=== PATIENT | male | born 1950 | race Caucasian/White ===

== ENCOUNTER 2020-07-06 05:42 | Day surgery (SDC) | payer MEDICARE, MEDICAID ==
[2020-07-06] VITALS (8 sets, daily range): BP systolic 122–138; BP diastolic 67–80
[~2020-07-06] VITALS: Ht 167.6 cm; Wt 61.4 kg
[2020-07-06] MEDS ORDERED: albumin 25% 100mL bottle x 1 IV PRN (06:00)
[2020-07-06] MEDS ORDERED: POTA10TA19 PO (06:05)
[2020-07-06] MEDS ORDERED: FURO-150 PO (06:05)
== END 2020-07-06 09:55 | disposition home or self-care (01) ==
LOC: SSTAY O 05:42
PROVIDERS: ATTEND Radiology Diagnostic Radiology
DX: R18.8 Other ascites (principal); N40.0 Benign prostatic hyperplasia without lower urinary tract symptoms; Z87.19 Personal history of other diseases of the digestive system; Z79.899 Other long term (current) drug therapy
CPT/HCPCS: 49083

== ENCOUNTER 2020-07-12 08:27 | Day surgery (SDC) | payer MEDICARE, MEDICAID ==
[~2020-07-12] VITALS: Ht 167.6 cm; Wt 63.3 kg
[~2020-07-12 08:27] MED LIST: FURO-150 PO; POTA10TA19 PO
[2020-07-12] MEDS ORDERED: albumin 25% 100mL bottle x 1 IV PRN (08:50)
[2020-07-12 08:54] VITALS: BP 144/83
[2020-07-12 09:40] VITALS: BP 153/85
[2020-07-12 09:55] VITALS: BP 144/89
[2020-07-12 10:10] VITALS: BP 141/80
[2020-07-12 10:30] VITALS: BP 141/79
[2020-07-12 10:45] VITALS: BP 148/76
== END 2020-07-12 11:10 | disposition home or self-care (01) ==
LOC: SSTAY O 08:27
PROVIDERS: ATTEND Radiology Diagnostic Radiology
DX: R18.8 Other ascites (principal); N40.0 Benign prostatic hyperplasia without lower urinary tract symptoms; Z79.899 Other long term (current) drug therapy; Z87.891 Personal history of nicotine dependence; Z98.49 Cataract extraction status, unspecified eye
CPT/HCPCS: 49083; P9047

== ENCOUNTER 2020-07-16 08:14 | Day surgery (SDC) | payer MEDICARE, MEDICAID ==
[~2020-07-16] VITALS: Ht 167.6 cm; Wt 60.9 kg
[2020-07-16 08:35] VITALS: BP 134/78
[2020-07-16] MEDS ORDERED: SPIR25TA5 PO (08:55)
[2020-07-16] MEDS ORDERED: MULT-381 PO (08:56)
[2020-07-16 09:37] LABS: BASOPHILS % (AUTO) 0.7 % (0-1); EOSINOPHILS # (AUTO) 0.1 X10'3 (0-0.9); EOSINOPHILS % (AUTO) 1.6 % (0-6); HEMATOCRIT 34.4 % (42.0-52.0); HEMOGLOBIN 11.7 g/dl (14.0-17.9); LYMPHOCYTES # (AUTO) 1.4 X10'3 (1.1-4.8); LYMPHOCYTES % (AUTO) 20.2 % (21-51); MEAN CORPUSCULAR HEMOGLOBIN 33.4 PG (27.0-31.0); MEAN CORPUSCULAR VOLUME 98.3 FL (78-98); MONOCYTES # (AUTO) 0.9 X10'3 (0-0.9); MONOCYTES % (AUTO) 13.9 % (2-12); NEUTROPHILS # (AUTO) 4.3 X10'3 (1.8-7.7); NEUTROPHILS % (AUTO) 63.6 % (42-75); PLATELET COUNT 107 X10'3 (140-440); RED CELL DISTRIBUTION WIDTH 17.9 % (11.5-14.5); WHITE BLOOD COUNT 6.8 X10'3 (4.5-11.0)
[2020-07-16 11:08] VITALS: BP 128/75
[2020-07-16 11:15] VITALS: BP 130/78
[2020-07-16 11:37] VITALS: BP 129/71
[2020-07-16] MEDS ORDERED: iohexol 300mg/ml 100ml inj. ONE (11:37)
[2020-07-16 11:43] LABS: ALBUMIN 1.7 G/DL (3.4-5.0); ANION GAP 7 (8-16); BLOOD UREA NITROGEN 25 MG/DL (7-18); BUN/CREATININE RATIO 30.9 (5.4-32.0); CHLORIDE 99 MMOL/L (99-107); CREATININE 0.81 MG/DL (0.60-1.10); GLUCOSE 115 MG/DL (70-104); POTASSIUM 3.8 MMOL/L (3.5-5.1); SODIUM 132 MMOL/L (135-145); TOTAL CARBON DIOXIDE 25.6 MMOL/L (24-32); eGFR > 90 ML/MIN
[2020-07-16 11:45] VITALS: BP 126/72
== END 2020-07-16 12:50 | disposition home or self-care (01) ==
LOC: SSTAY O 08:14
PROVIDERS: ATTEND Radiology Diagnostic Radiology
DX: K70.31 Alcoholic cirrhosis of liver with ascites (principal); K76.89 Other specified diseases of liver; K80.20 Calculus of gallbladder without cholecystitis without obstruction; R16.1 Splenomegaly, not elsewhere classified; N40.0 Benign prostatic hyperplasia without lower urinary tract symptoms; Z72.89 Other problems related to lifestyle; Z79.899 Other long term (current) drug therapy
CPT/HCPCS: 36415; 49083; 74177; 80048; 85025; 85610; Q9967

== ENCOUNTER 2020-07-26 06:31 | Day surgery (SDC) | payer MEDICARE, MEDICAID ==
[~2020-07-26] VITALS: Ht 167.6 cm; Wt 61.9 kg
[2020-07-26] VITALS (9 sets, daily range): BP systolic 111–136; BP diastolic 53–78
[~2020-07-26 06:31] MED LIST changes: +MULT-381 PO; -POTA10TA19 PO; +SPIR25TA5 PO
[2020-07-26] MEDS ORDERED: albumin (human) 25% 100 ML IV solution IV ONE (08:55)
== END 2020-07-26 10:27 | disposition home or self-care (01) ==
LOC: SSTAY O 06:31
PROVIDERS: ATTEND Radiology Diagnostic Radiology
DX: R18.8 Other ascites (principal); N40.0 Benign prostatic hyperplasia without lower urinary tract symptoms; Z72.89 Other problems related to lifestyle; K76.89 Other specified diseases of liver; Z79.899 Other long term (current) drug therapy
CPT/HCPCS: 49083; P9047

== ENCOUNTER 2020-08-07 06:52 | Day surgery (SDC) | payer MEDICARE, MEDICAID ==
[2020-08-07] VITALS (8 sets, daily range): BP systolic 125–147; BP diastolic 72–81
[~2020-08-07] VITALS: Ht 167.6 cm; Wt 61.2 kg
[2020-08-07] MEDS ORDERED: albumin 25% 100mL bottle x 1 IV PRN (07:10)
[2020-08-07] MEDS ORDERED: normal saline 1000ml 1,000 ML IV PRN (07:10)
== END 2020-08-07 09:45 | disposition home or self-care (01) ==
LOC: SSTAY O 06:52
PROVIDERS: ATTEND Radiology Diagnostic Radiology
DX: R18.8 Other ascites (principal); N40.0 Benign prostatic hyperplasia without lower urinary tract symptoms; Z87.19 Personal history of other diseases of the digestive system; Z79.899 Other long term (current) drug therapy
CPT/HCPCS: 49083; P9047

== ENCOUNTER 2020-08-20 06:23 | Day surgery (SDC) | payer MEDICARE, MEDICAID ==
[2020-08-20] VITALS (7 sets, daily range): BP systolic 116–138; BP diastolic 66–73
[~2020-08-20] VITALS: Ht 167.6 cm; Wt 59.6 kg
[2020-08-20] MEDS ORDERED: albumin (human) 25% 100ml IV 100 ML IV PRN (09:10)
== END 2020-08-20 10:10 | disposition home or self-care (01) ==
LOC: SSTAY O 06:23
PROVIDERS: ATTEND Radiology Vascular & Interventional Radiology
DX: R18.8 Other ascites (principal); R14.0 Abdominal distension (gaseous); N40.0 Benign prostatic hyperplasia without lower urinary tract symptoms; Z72.89 Other problems related to lifestyle; Z79.899 Other long term (current) drug therapy
CPT/HCPCS: 49083; P9047

== ENCOUNTER 2020-08-31 06:32 | Day surgery (SDC) | payer MEDICARE, MEDICAID ==
[~2020-08-31] VITALS: Ht 167.6 cm; Wt 58.4 kg
[2020-08-31] MEDS ORDERED: albumin 25% 100mL bottle x 1 IV PRN (07:00)
[2020-08-31] MEDS ORDERED: DIPH-423 PO (07:02)
[2020-08-31 07:05] VITALS: BP 153/82
[2020-08-31 08:30] VITALS: BP 119/81
[2020-08-31 08:37] VITALS: BP 140/78
[2020-08-31 08:52] VITALS: BP 128/75
[2020-08-31 08:59] VITALS: BP 138/76
== END 2020-08-31 09:25 | disposition home or self-care (01) ==
LOC: SSTAY O 06:32
PROVIDERS: ATTEND Radiology Diagnostic Radiology
DX: R18.8 Other ascites (principal); R14.0 Abdominal distension (gaseous); N40.0 Benign prostatic hyperplasia without lower urinary tract symptoms; Z72.89 Other problems related to lifestyle; Z79.899 Other long term (current) drug therapy
CPT/HCPCS: 49083

== ENCOUNTER 2020-09-11 22:33 | Inpatient (IN) | payer MEDICARE, MEDICAID ==
[~2020-09-11] VITALS: Ht 167.6 cm; Wt 63.1 kg
--- NOTE | 2020-09-11 18:21 | NUR ---
Received report from Mitzy WILLETT at [facility]. RN stated that [facility] left with the pt at 1800.
--- NOTE | 2020-09-11 22:00 | NUR ---
Pt arrived on the unit via [facility]. Pt was agitated at the time of arrival and demanding to "go home right now!" Pt pulled his corpack out and refused assessment and all treatment. Son was called and was able to calm the patient. Vital signs are stable and pt had no signs of medical distress, will continue to monitor.
[~2020-09-11 22:33] MED LIST changes: +DIPH-423 PO
[2020-09-11] MEDS ORDERED: HYDROmorphone inj. 0.5 MG/0.5 ML DISP.SYRIN IV PRN (22:55)
[2020-09-11] MEDS ORDERED: ondansetron/PF 4mg/2ml inj IV PRN (22:55)
[2020-09-11] MEDS ORDERED: diphenhydrAMINE 50 mg/ml inj IV PRN (23:00)
[2020-09-12] VITALS: BP 148/69
--- NOTE | 2020-09-12 06:35 | NUR ---
Problems reprioritized. Patient report given, questions answered & plan of care reviewed with Morales WILLETT.
[2020-09-12 08:02] VITALS: BP 115/64
== END 2020-09-12 12:50 | disposition hospice, home (50) | DRG 951 ==
LOC: SUR 3N 22:33
PROVIDERS: ADMIT Internal Medicine; ATTEND Family Medicine
DX: Z51.5 Encounter for palliative care (principal); C22.0 Liver cell carcinoma; R64 Cachexia; F10.20 Alcohol dependence, uncomplicated; K70.40 Alcoholic hepatic failure without coma; Z79.899 Other long term (current) drug therapy; Z68.22 Body mass index [BMI] 22.0-22.9, adult
CPT/HCPCS: G0378

== ENCOUNTER 2020-09-17 04:53 | Inpatient (IN) | payer MEDICARE, MEDICAID ==
[~2020-09-17] VITALS: Ht 170.2 cm; Wt 63.0 kg
[~2020-09-17 04:53] MED LIST changes: -MULT-381 PO; -SPIR25TA5 PO
[2020-09-17] MEDS ORDERED: normal saline 1000ML IV soln IVB ONE (05:05)
[2020-09-17 05:12] LABS: ABG BASE EXCESS -14.7 mmol/L (-2.0-2.0); ABG HCO3 12.9 mmol/L (22.0-26.0); ABG OXYGEN SATURATION 74.2 % (94-97); ABG PCO2 (T) 36.4 mmHg (35.0-48.0); ABG PO2 (T) 52.6 mmHg (75.0-100.0); ALLEN'S TEST POSITIVE; FCOHb 2.2 % (0.0-3.9); FMetHb 0.3 % (0.0-1.5); FO2Hb 72.3 % (94-97); TOTAL HEMOGLOBIN 9.2 G/dl (14.0-18.0)
[2020-09-17] MEDS ORDERED: ondansetron/PF 4mg/2ml inj IV ONE (05:15)
[2020-09-17] MEDS: morphine 4 MG/ML inj SYRINge IV PRN ×2 (05:32→06:08)
[2020-09-17 05:48] LABS: ALANINE AMINOTRANSFERASE 126 U/L (12-78); ALBUMIN 1.9 G/DL (3.4-5.0); ALKALINE PHOSPHATASE 219 IU/L (46-116); ANION GAP 22 (8-16); BLOOD UREA NITROGEN 74 MG/DL (7-18); CHLORIDE 96 MMOL/L (99-107); SODIUM 132 MMOL/L (135-145)
[2020-09-17 05:59] LABS: ASPARTATE AMINO TRANSFERASE 244 U/L (10-37)
[2020-09-17 06:02] LABS: ALBUMIN/GLOBULIN RATIO 0.5 (1.1-1.5)
[2020-09-17 06:03] LABS: BASOPHILS % (AUTO) 0.7 % (0-1); EOSINOPHILS # (AUTO) 0.1 X10'3 (0-0.9); EOSINOPHILS % (AUTO) 1.3 % (0-6); HEMATOCRIT 27.6 % (42.0-52.0); HEMOGLOBIN 9.2 g/dl (14.0-17.9); LYMPHOCYTES # (AUTO) 0.7 X10'3 (1.1-4.8); LYMPHOCYTES % (AUTO) 16.4 % (21-51); MEAN CORPUSCULAR HEMOGLOBIN 34.7 PG (27.0-31.0); MEAN CORPUSCULAR HGB CONC 33.2 g/dL (33.0-36.5); MEAN CORPUSCULAR VOLUME 104.7 FL (78-98); MEAN PLATELET VOLUME 10.7 FL (7.4-10.4); NEUTROPHILS # (AUTO) 3.3 X10'3 (1.8-7.7); NEUTROPHILS % (AUTO) 80.6 % (42-75); PLATELET COUNT 97 X10'3 (140-440); RED BLOOD COUNT 2.64 X10'6 (4.70-6.10); RED CELL DISTRIBUTION WIDTH 20.8 % (11.5-14.5); WHITE BLOOD COUNT 4.1 X10'3 (4.5-11.0)
[2020-09-17 06:04] LABS: GLUCOSE 186 MG/DL (70-104)
[2020-09-17 06:05] LABS: BILIRUBIN,TOTAL 31.1 MG/DL (0.1-1.0); CREATININE 3.22 MG/DL (0.60-1.10); TOTAL PROTEIN 5.9 G/DL (6.4-8.2); eGFR 19 ML/MIN
[2020-09-17 06:07] LABS: POTASSIUM 6.5 MMOL/L (3.5-5.1)
[2020-09-17 06:09] LABS: CLARITY,URINE CLEAR (Clear); COLOR,URINE AMBER (Yellow); GLUCOSE, URINE 100 mg/dl (Neg); KETONES,URINE TRACE mg/dl (Neg); LEUKOCYTE ESTERASE ,URINE NEGATIVE (Neg); NITRITES, URINE NEGATIVE (Neg); OCCULT BLOOD,URINE SMALL (Neg); PH,URINE 5.5 (4.8-8.0); PROTEIN,URINE TRACE mg/dl (Neg); UROBILINOGEN,URINE 0.2 E.U/dL (0.2-1.0)
[2020-09-17] MEDS ORDERED: CALCIUM GLUC 1gm/50ml NACL,iso 50 ML IV ONE (06:10)
[2020-09-17] MEDS ORDERED: sodium bicarbonate (8.4%) 1 mEq/ml syringe IV ONE (06:10)
[2020-09-17] MEDS ORDERED: insulin regular, human U-100 3ml vial - multi-dose IV ONE (06:10)
[2020-09-17] MEDS ORDERED: dextrose 50%-water 50ml dispensing syringe IV ONE (06:10)
--- NOTE | 2020-09-17 06:10 | NUR ---
Per hospice who saw patient yesterday he was alert- stated that when family called about sending him to the hospital today they were suggesting a paracentesis to help aleviate the pain.
[2020-09-17 06:16] LABS: UA COLLECTION TYPE FOLEY CATH
[2020-09-17 06:19] LABS: WBC,URINE 0-4 /HPF (0-4)
[2020-09-17 06:20] LABS: BACTERIA,URINE NONE SEEN /HPF (Neg); MUCUS STRANDS NONE SEEN /LPF (Neg); RBC,URINE NONE SEEN /HPF (0-2); SQUAMOUS EPITHELIAL CELL,UR FEW /LPF (FEW)
--- NOTE | 2020-09-17 06:30 | NUR ---
DISCUSSED PT'S HOSPICE/DNR STATUS AND HYPERKALEMIA TX W/ EDMD CLARISA. NEW ORDER RECEIVED TO CANCEL HYPERKALEMIA PROTOCOL IT IS NOT CONSISTANT W/ COMFORT CARE ONLY STATUS.
[2020-09-17 07:17] LABS: ANISOCYTOSIS 3+; NUCLEATED RED BLOOD CELLS 1 /100WBC (0-0); PLATELET ESTIMATE DECREASED; TOTAL CELLS COUNTED 100
[2020-09-17 07:18] LABS: ACANTHOCYTES FEW; BURR CELLS 2+; SCHISTOCYTES FEW
[2020-09-17 07:25] LABS: PARTIAL THROMBOPLASTIN TIME 76 SECONDS (22-32)
[2020-09-17 07:51] LABS: ISTAT CREATININE 3.6 mg/dL (0.8-1.3)
[2020-09-17 07:52] LABS: ISTAT HGB 9.2 g/dl (14.0-18.0); ISTAT IONIZED CALCIUM 1.05 mmol/L (1.03-1.32); POC BUN/CREATININE RATIO 20.8 (5.4-32.0)
[2020-09-17 07:56] LABS: ISTAT K 6.3 mmol/L (3.5-5.1)
[2020-09-17 07:59] LABS: ISTAT TCO2 CONFIRMATION 14 mmol/l
[2020-09-17] MEDS ORDERED: ondansetron/PF 4mg/2ml inj IV PRN (08:00)
[2020-09-17] MEDS ORDERED: mag hydrox/Alum hydrox/simeth 30ml oral suspension PO PRN (08:00)
[2020-09-17] MEDS ORDERED: morphine 2 MG/ML inj. syringe IV PRN ×2 (08:00)
[2020-09-17] MEDS ORDERED: acetaminophen 325mg tablet PO PRN (08:00)
[2020-09-17] MEDS ORDERED: LORazepam 2 mg/ml vial IV PRN (08:00)
[2020-09-17] MEDS ORDERED: magnesium hydroxide 30ml (MOM) UD suspension PO PRN (08:00)
--- NOTE | 2020-09-17 09:00 | NUR ---
CALL OUT TO DR WELCH
--- NOTE | 2020-09-17 09:16 | NUR ---
Discussed pt's status including decreasing BP and audible rhales w/ Hospitalist Henderson; no new orders received other than to maintain comfort.
[2020-09-17 12:00] VITALS: BP 60/39
--- NOTE | 2020-09-17 12:38 | NUR ---
Anam, [facility], called to say pt needed to be off Hospice if admitted. Explained pt was taking last breathes. Per Anam, contact him when pt expires so dequan WILLETT can do a assessment.
--- NOTE | 2020-09-17 12:39 | NUR ---
Pt . No pulse. Dr Henderson contacted to pronounce.
--- NOTE | 2020-09-17 12:48 | NUR ---
Per Dr Henderson, TID is [id number]. [facility] notified; spoke w/ Adelaida who will let Anam know.
--- NOTE | 2020-09-17 13:36 | NUR ---
TAMIE Mendieta w/ [facility] engaged in assessment. Due to pt's hospice status, he will be handling all contact needed to transfer pt to mortuary. AJ Mckenna appraised.
--- NOTE | 2020-09-17 15:01 | NUR ---
Covering for break primary RN. Mendieta from Hospice informed time of : 1:30
== END 2020-09-17 16:06 | disposition expired | DRG 441 ==
LOC: ER 04:54 → ED HOLD 08:00 → UNDOADMIN 08:00 → SUR 3N 08:01
PROVIDERS: ADMIT Family Medicine; ATTEND Family Medicine
DX: K72.90 Hepatic failure, unspecified without coma (principal); J96.01 Acute respiratory failure with hypoxia; C22.0 Liver cell carcinoma; E87.1 Hypo-osmolality and hyponatremia; N17.9 Acute kidney failure, unspecified; E87.5 Hyperkalemia; K74.60 Unspecified cirrhosis of liver; Z66 Do not resuscitate; Z51.5 Encounter for palliative care
CPT/HCPCS: 36415; 36600; 71045; 80047; 80053; 81001; 82140; 82803; 82948; 85007; 85018; 85025; 85610; 85730; 93005; 96374; 99285; G0378; J2270; J2405; J7030